=== PATIENT | male | born 1970 | race American Indian/Alaskan Native ===

== ENCOUNTER 2018-04-07 18:52 | Emergency (ER) | payer MEDICARE ==
[2018-04-07 18:53] VITALS: BMI 41.3
[2018-04-07 19:14] VITALS: RESP 20; O2SAT 96
[2018-04-07 20:32] LABS: BASO % 0.4 % (0.0-2.0); EOS # 0.1 K/uL (0.0-0.7); EOS % 1.3 % (0.0-4.0); HEMOGLOBIN 15.5 g/dL (12.0-18.0); LYMPH # 1.6 K/uL (1.0-4.3); LYMPH % 30.9 % (20.0-40.0); MEAN CELL VOLUME 87.1 fl (80.0-94.0); MEAN CORPUSCULAR HEMOGLOBIN 28.6 pg (27.0-31.0); MEAN CORPUSCULAR HGB CONC 32.9 g/dL (33.0-37.0); MEAN PLATELET VOLUME 7.5 fl (7.2-11.7); MONO # 1.1 K/uL (0.0-0.8); NEUT # 2.3 K/uL (1.8-7.0); NEUT % 45.4 % (50.0-75.0); PLATELET COUNT 206 K/uL (130-400); RED CELL DISTRIBUTION WIDTH 14.4 % (11.5-14.5); VENOUS BLOOD GAS BASE EXCESS 3.7 mmol/L (0.0-2.0); VENOUS BLOOD GAS PCO2 39 mmHg (40-60); VENOUS BLOOD GAS PO2 49 mm/Hg (30-55); VENOUS BLOOD PH 7.46 (7.32-7.43); WHITE BLOOD COUNT 5.1 K/uL (4.8-10.8)
[2018-04-07 20:43] LABS: ALB/GLOB RATIO 1.3 (1.0-2.1); ALBUMIN 4.5 g/dL (3.5-5.0); ALT/SGPT 52 U/L (21-72); AST/SGOT 45 U/L (17-59); BLOOD UREA NITROGEN 12 mg/dl (9-20); CALCIUM 9.3 mg/dL (8.4-10.2); GFR NON-AFRICAN AMERICAN > 60
--- NOTE | 2018-04-07 20:45 | ED PDOC ---
HPI: Influenza Time Seen by Provider: 04/07/18 19:22 Chief Complaint: Cough, Cold, Congestion Chief Complaint (Provider): Cough History Per: Patient Exam Limitations: no limitations Onset/Duration Of Symptoms: Days (2x weeks) Symptoms include: fever (chills), bodyaches, cough (yellow phlegm), nasal congestion. denies: chest pain, difficulty breathing, other (runny nose, hemoptysis) Sick Contacts (Context): Family Member(s) ( admitted to hospital for pneumonia) Additional complaint(s):: 47 year old male (smoker) with a past medical history of diabetes presents to the ED for an evaluation of a cough that has been prog ressively worsening for 2x weeks. Patient reports that the the cough is associated with yellow phlegm. Patient also reports having nasal congestion, a fever, chills, and bodyaches. Patient also reports severe pleuritic pain when coughing, occasionally has wretching when he coughs, and sometimes feels very lightheaded and as if he is going to pass out after coughing. Patient's was recently admitted for pneumonia. Patient denies having rhinorrhea, hemoptysis, sore throat, chest pain (unless coughing), and shortness of breath (unless coughing). PMD: Dr. 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 - Family History Family History: States: Diabetes - Social History Current smoker - smoking cessation education provided: Yes Alcohol: None Drugs: Denies - Home Medications Home Medications: Ambulatory Orders Medication Instructions Recorded Azithromycin 1 tab PO DAILY #6 tab 04/07/18 Oseltamivir Cap [Tamiflu] 75 mg PO BID #10 cap 04/07/18 - Allergies Allergies/Adverse Reactions: Allergies Allergy/AdvReac Type Severity Reaction Status Date / Time cephalexin [From Keflex] Allergy ANAPHYLAXIS Verified 04/07/18 19:08 iodine Allergy RASH Verified 04/07/18 19:08 Penicillins Allergy ANAPHYLAXIS Verified 04/07/18 19:08 shellfish derived Allergy ANAPHYLAXIS Verified 04/07/18 19:08 Review of Systems ROS Statement: Except As Marked, All Systems Reviewed And Found Negative Constitutional: Positive for: Fever, Chills, Other (bodyaches) ENT: Positive for: Nose Congestion. Negative for: Nose Discharge, Throat Pain Cardiovascular: Positive for: Light Headedness (when coughing). Negative for: Chest Pain Respiratory: Positive for: Cough (associated with yellow phlegm), Pleuritic Pain. Negative for: Shortness of Breath, Hemoptysis Physical Exam - Reviewed Nursing Documentation Reviewed: Yes Vital Signs Reviewed: Yes - Physical Exam Appears: Positive for: Non-toxic, No Acute Distress. Negative for: Well (febrile, tired-appearing) Head Exam: Positive for: ATRAUMATIC, NORMOCEPHALIC Skin: Positive for: Normal Color, Warm, Dry ENT: Positive for: Pharynx Is (clear), Other (boggy nasal turbinates. otherwise, ENT normal.) Neck: Positive for: Painless ROM, Supple Cardiovascular/Chest: Positive for: Tachycardia (regular rhythm) Respiratory: Positive for: Normal Breath Sounds (lungs are clear to auscultation). Negative for: Decreased Breath Sounds, Accessory Muscle Use, Rales, Rhonchi, Wheezing, Respiratory Distress Gastrointestinal/Abdominal: Positive for: Soft. Negative for: Tenderness Back: Positive for: Normal Inspection. Negative for: Muscle Spasm Extremity: Positive for: Normal ROM. Negative for: Deformity, Other (edema) Lymphatic: Negative for: Adenopathy Neurologic/Psych: Positive for: Alert, Oriented (3x). Negative for: Motor/Sensory Deficits Medical Decision Making Medical Decision Makin:22 Initial impression: 47 year old male with a cough. Differential diagnoses include but are not limited to bronchitis, pneumonia, viral syndrome, influenza, and pertussis. Initial plan: * XRay chest 2 views * EKG * VBG * CMP * CBC w/ diff * glucose, poc * blood culture * influenza A B * tylenol 325 mg tab 975 mg PO * reevaluation Flu + but no clinically significant abnormalities CXR with no acute findings Tamiflu orderd DW pt findings and plan of care. Rest. Tylenol prn. Tamiflu. Zpack. f/u pmd 48 hours -- Scribe Attestation: Documented byElysia Mederos, acting as a scribe for Seema Gonsalves MD. Provider Scribe Attestation: All medical record entries made by the Scribe were at my direction and personally dictated by me. I have reviewed the chart and agree that the record accurately reflects my personal performance of the history, physical exam, medical decision making, and the department course for this patient. I have also personally directed, reviewed, and agree with the discharge instructions and dis position. - Laboratory Results Result Diagrams: 04/07/18 20:15 04/07/18 20:15 - ECG O2 Sat by Pulse Oximetry: 96 (RA) Pulse Ox Interpretation: Normal Disposition - Clinical Impression Clinical Impression: Influenza, Bronchitis Counseled Patient/Family Regarding: Studies Performed, Diagnosis, Need For Followup, Rx Given - Disposition Referrals: Antione Hernandez MD [Medical Doctor] - 04/09/18 Disposition: Routine/Home Disposition Time: 22:14 Condition: STABLE Prescriptions: Azithromycin 1 tab PO DAILY #6 tab Oseltamivir Cap [Tamiflu] 75 mg PO BID #10 cap Instructions: Flu, Adult (DC), Acute Bronchitis, Adult (DC) Forms: [employer] (Icelandic)
[2018-04-07 21:43] VITALS: TEMP 101.4
[2018-04-07 22:54] LABS: BANDS 1 % (0-2); BASOPHIL 1 % (0-2); EOSINOPHIL 2 % (0-7); LYMPHOCYTE 25 % (20-50); MONOCYTE 22 % (0-10); NEUTROPHIL 46 % (42-75); PLATELET ESTIMATE NORMAL (NORMAL); REACTIVE LYMPHOCYTES 3 % (0-0); TOTAL CELLS COUNTED 100
[2018-04-07 22:55] LABS: HYPOCHROMIC SLIGHT
[2018-04-07 22:56] LABS: PLATELET CLUMPS PRESENT
[2018-04-08 05:59] VITALS: BP 107/63; PULSE 77
--- NOTE | 2018-04-08 12:55 | RAD ---
Date of service: 04/07/2018 HISTORY: Cough, chest pain. COMPARISON: No prior. TECHNIQUE: Chest PA and lateral FINDINGS: LUNGS: No active pulmonary disease. PLEURA: No significant pleural effusion identified. No pneumothorax apparent. CARDIOVASCULAR: No aortic atherosclerotic calcification present. Normal cardiac size. No pulmonary vascular congestion. OSSEOUS STRUCTURES: No significant abnormalities. VISUALIZED UPPER ABDOMEN: Normal. OTHER FINDINGS: None. IMPRESSION: No active disease.
--- NOTE | 2018-04-08 20:14 | CARD ---
APPROVED REPORT Date of service: 04/07/2018 EKG Measurement Heart [id number] MD [id number] <Conclusion> Sinus tachycardia Left axis deviation Minimal voltage criteria for LVH, may be normal variant Abnormal ECG
== END 2018-04-07 22:30 | disposition home or self-care (01) ==
LOC: H.ER 18:52
DX: J11.1 Influenza due to unidentified influenza virus with other respiratory manifestations (principal); J40 Bronchitis, not specified as acute or chronic; E11.9 Type 2 diabetes mellitus without complications; Z88.0 Allergy status to penicillin

== ENCOUNTER 2018-04-17 15:45 | Emergency (ER) | payer MEDICARE ==
[2018-04-17 15:46] VITALS: BMI 41.3
[2018-04-17 16:02] VITALS: O2SAT 99
--- NOTE | 2018-04-17 16:32 | ED PDOC ---
HPI: General Adult Time Seen by Provider: 04/17/18 16:22 Chief Complaint (Nursing): ENT Problem Chief Complaint (Provider): Sore Throat History Per: Patient History/Exam Limitations: no limitations Onset/Duration Of Symptoms: Days (x3) Current Symptoms Are (Timing): Still Present Additional Complaint(s): 47 year old male presents to the ED for evaluation of a sore throat, tactile fever, left ear pain, nasal congestion, and difficulty breathing / swallowing for the past three days. Patient speaking with "hot potato" voice. PMD: Morgan Past Medical History Reviewed: Historical Data, Nursing Documentation, Vital Signs Vital Signs: Last Vital Signs Temp 98.7 F 04/17/18 16:00 Pulse 92 H 04/17/18 16:00 Resp 18 04/17/18 16:00 BP 151/78 H 04/17/18 16:00 Pulse Ox 99 04/17/18 16:00 - Medical History PMH: Bronchitis, Depression, Diabetes, Sleep Apnea (uses CPAP at home) - Surgical History Surgical History: Back Surgery - Family History Family History: States: Diabetes - Social History Current smoker - smoking cessation education provided: Yes Alcohol: Social Drugs: Cannabis (in college) - Home Medications Home Medications: Ambulatory Orders Medication Instructions Recorded Azithromycin 1 tab PO DAILY #6 tab 04/07/18 Oseltamivir Cap [Tamiflu] 75 mg PO BID #10 cap 04/07/18 Clindamycin [Cleocin] 300 mg PO TID #30 cap 04/17/18 - Allergies Allergies/Adverse Reactions: Allergies Allergy/AdvReac Type Severity Reaction Status Date / Time cephalexin [From Keflex] Allergy ANAPHYLAXIS Verified 04/07/18 19:08 iodine Allergy RASH Verified 04/07/18 19:08 Penicillins Allergy ANAPHYLAXIS Verified 04/07/18 19:08 shellfish derived Allergy ANAPHYLAXIS Verified 04/07/18 19:08 Review of Systems ROS Statement: Except As Marked, All Systems Reviewed And Found Negative Constitutional: Positive for: Fever (tactile) ENT: Positive for: Ear Pain (left), Nose Congestion, Throat Pain (with difficulty swallowing and breathing) Physical Exam - Reviewed Nursing Documentation Reviewed: Yes Vital Signs Reviewed: Yes - Physical Exam Appears: Positive for: No Acute Distress (but speaking with "hot potato" voice) Head Exam: Positive for: ATRAUMATIC, NORMOCEPHALIC Skin: Positive for: Normal Color, Warm ENT: Positive for: Tonsillar Swelling (+3/+4 bilaterally), Other (tonsillar erythema bilaterally; pt is not in any respiratory distress and is swallowing all of his secretions; ). Negative for: Tonsillar Exudate Neck: Positive for: Normal, Painless ROM, Supple Cardiovascular/Chest: Positive for: Regular Rate, Rhythm Respiratory: Positive for: Normal Breath Sounds. Negative for: Crackles, Rales, Rhonchi, Wheezing, Respiratory Distress Lymphatic: Positive for: Other (cervical lymphatic tenderness bilaterally, left greater than right) Neurologic/Psych: Positive for: Alert, Oriented (x3). Negative for: Motor/Se nsory Deficits - Laboratory Results Result Diagrams: 04/17/18 17:19 04/17/18 17:19 - ECG O2 Sat by Pulse Oximetry: 99 (RA) Pulse Ox Interpretation: Normal Medical Decision Making Medical Decision Making: Time: 162 Initial Impression: sore throat with swollen tonsils, r/o peritonsillar abscess Initial Plan: --Influenza A B swab --Rapid strep swab --CT Neck soft tissue without contrast (pt allergic to dye) --CMP --CBC with differential --Urinalysis --Decadron 10mg PO --Normal saline IV --Clindamycin 900mg IVPB 1827 CT Neck FINDINGS: This examination is limited due to the lack of circulating intravenous contrast material. NASOPHARYNX: Unremarkable. SUPRAHYOID NECK: Unremarkable oropharynx, oral cavity, parapharyngeal space and retropharyngeal space.. No definitive radiographic evidence of a peritonsillar fluid or abscess collections seen on this limited noncontrast exam. The palatine tonsils do not appear significantly enlarged. Airway is patent. The INFRAHYOID NECK: Unremarkable larynx, hypopharynx, and supraglottic space. Vocal cords intact. MASS: No obvious masses or collections. GLANDS: Parotid and submandibular glands unremarkable. Normal size thyroid gland, without nodule. of LYMPH NODES: Multiple small nonspecific bilateral cervical lymph nodes are present none of which appear pathologically enlarged. CERVICAL SPINE: No fracture or focal lesion. OTHER FINDINGS: Subtotal opacification of the left maxillary antrum. There is also opacification of multiple left-sided ethmoid air cells. IMPRESSION: Limited study due to the lack of circulating intravenous contrast material. No evidence of large peritonsillar fluid or abscess collections seen on this left noncontrast exam. If further evaluation is required, consider follow-up post-contrast CT scan of the neck. Subtotal opacification left maxillary antrum with opacification of several left- sided ethmoid air cells. Rapid Strep (-) Influenza (-) Pt feels much better prior to discharge and neither airway is obstructed whatsoever; The pt will be rx clindamycin and urged to follow up with PMD Scribe Attestation: Documented by Kallie Short, acting as a scribe for Jim Gonzalez PA-C. Provider Scribe Attestation: All medical record entries made by the Scribe were at my direction and personally dictated by me. I have reviewed the chart and agree that the record accurately reflects my personal performance of the history, physical exam, medical decision making, and the department course for this patient. I have also personally directed, reviewed, and agree with the discharge instructions and disposition. Disposition - Clinical Impression Clinical Impression: Acute ear pain, Tonsillitis - Patient ED Disposition Is Patient to be Admitted: No Doctor Will See Patient In The: Office Counseled Patient/Family Regarding: Studies Performed, Diagnosis, Need For Followup, Rx Given - Disposition Disposition: Routine/Home Disposition Time: 18:52 Condition: STABLE Additional Instructions: Take all antibioltics Follow up with PMD in 24-48 hours Return to ED if symptoms worsen Prescriptions: Clindamycin [Cleocin] 300 mg PO TID #30 cap Instructions: Sore Throat, Adult (DC), Bacterial Upper Respiratory Infection, Adult Forms: [employer] (Uzbek)
[2018-04-17] MEDS ORDERED: CLINDAMYCIN IVPB STA (16:37)
[2018-04-17] MEDS ORDERED: SODIUM CHLORIDE 0.9% IVPB STA (16:37)
[2018-04-17 17:36] LABS: BASO % 0.2 % (0.0-2.0); EOS # 0.3 K/uL (0.0-0.7); HEMOGLOBIN 15.3 g/dL (12.0-18.0); LYMPH # 3.3 K/uL (1.0-4.3); LYMPH % 33.5 % (20.0-40.0); MEAN CELL VOLUME 87.7 fl (80.0-94.0); MEAN CORPUSCULAR HEMOGLOBIN 28.6 pg (27.0-31.0); MEAN CORPUSCULAR HGB CONC 32.7 g/dL (33.0-37.0); MEAN PLATELET VOLUME 7.5 fl (7.2-11.7); MONO % 10.4 % (0.0-10.0); NEUT # 5.2 K/uL (1.8-7.0); NEUT % 52.9 % (50.0-75.0); NRBC % 0.1 % (0.0-0.0); RBC 5.35 Mil/uL (4.40-5.90); RED CELL DISTRIBUTION WIDTH 13.9 % (11.5-14.5); WHITE BLOOD COUNT 9.8 K/uL (4.8-10.8)
[2018-04-17 17:47] LABS: BLOOD UREA NITROGEN 14 mg/dl (9-20); GFR NON-AFRICAN AMERICAN > 60
[2018-04-17 17:48] LABS: ALB/GLOB RATIO 1.3 (1.0-2.1); ALBUMIN 4.4 g/dL (3.5-5.0); ALT/SGPT 35 U/L (21-72); AST/SGOT 28 U/L (17-59)
[2018-04-17] MEDS: Sodium Chloride 0.9% 1,000 ML IV SCH ×2 (17:58→17:59)
--- NOTE | 2018-04-17 18:31 | CT ---
Date of service: 04/17/2018 PROCEDURE: CT NECK WITHOUT CONTRAST HISTORY: R/O ROD PULLER COMPARISON: None available. TECHNIQUE: CT of the neck without intravenous contrast. Coronal and sagittal reformats generated. Radiation dose: Total exam DLP = 371.13 mGy-cm. This CT exam was performed using one or more of the following dose reduction techniques: Automated exposure control, adjustment of the mA and/or kV according to patient size, and/or use of iterative reconstruction technique. FINDINGS: This examination is limited due to the lack of circulating intravenous contrast material. NASOPHARYNX: Unremarkable. SUPRAHYOID NECK: Unremarkable oropharynx, oral cavity, parapharyngeal space and retropharyngeal space.. No definitive radiographic evidence of a peritonsillar fluid or abscess collections seen on this limited noncontrast exam. The palatine tonsils do not appear significantly enlarged. Airway is patent. The INFRAHYOID NECK: Unremarkable larynx, hypopharynx, and supraglottic space. Vocal cords intact. MASS: No obvious masses or collections. GLANDS: Parotid and submandibular glands unremarkable. Normal size thyroid gland, without nodule. of LYMPH NODES: Multiple small nonspecific bilateral cervical lymph nodes are present none of which appear pathologically enlarged. CERVICAL SPINE: No fracture or focal lesion. OTHER FINDINGS: Subtotal opacification of the left maxillary antrum. There is also opacification of multiple left-sided ethmoid air cells. IMPRESSION: Limited study due to the lack of circulating intravenous contrast material. No evidence of large peritonsillar fluid or abscess collections seen on this left noncontrast exam. If further evaluation is required, consider follow-up post-contrast CT scan of the neck. Subtotal opacification left maxillary antrum with opacification of several left-sided ethmoid air cells.
[2018-04-17 22:34] VITALS: BP 144/76; PULSE 82; RESP 16; TEMP 98.4
== END 2018-04-17 19:10 | disposition home or self-care (01) ==
LOC: H.ER 15:45
DX: J03.90 Acute tonsillitis, unspecified (principal); H92.09 Otalgia, unspecified ear
CPT/HCPCS: 70490; 80053; 85025; 87070; 87430; 87804; 96365; 99282; J1100; J7030